=== PATIENT | female | born 1975 | race Caucasian/White ===

== ENCOUNTER 2024-04-24 14:07 | Outpatient (REF) | payer MEDICAID, SELFPAY ==
--- OUTSIDE RECORDS SUMMARY | 2024-04-24 15:15 | XMS_ITS | Encounter Summary ---
Author Organization [employer] Address [address] [facility] 7t [place] [address] Care Team Providers Care Legal Instructor Name Role Phone Estela Powers MD Primary Care Provider [phone] Jos Ying RN Unavailable [phone] Reason for Visit * Reason Onset Date Comments Care Management 04/04/2024 C3CM- f/u call # 2 lvm Encounter Details Date Type Department Care Team ([facility] st Contact Info) Description 04/04/2024 Telephone [facility] MEDICINE [address] [place] [address] Jos Ying, RN [address] [place] [address] Care Management (C3CM- f/u call #2 lvm) Social History Tobacco Use Types Packs/Day Years Used Date Smoking Tobacco: Every Day Cigarettes Smokeless Tobacco: Never Housing Stability Answer Date Recorded What is your housing situation today? I have fitz génesis 03/18/[address] you li ve. Do you have problems with any of the following? None of the above 03/18/2024 Food Insecurity Answer Date Recorded Within the past 12 months, y ou worried that your food would run out before you got money to buy more: Sometimes True 2024 Within the past 12 months,th e food you bought just didn't last and you didn't have enough money to get more: Sometimes True 03/18/2024 Transportation Answer Date Recorded In the past 12 months, has l ack of transportation kept you from medical appts, meetings, work or from getting things needed for daily living? Yes, it has kept me from medical appointments or getting medications. 03/18/2024 Utilities Answer Date Recorded In the past 12 months, has t he electric, gas, oil or water company threatened to shut off services in your home? No 03/18/2024 Internet Access Answer Date Recorded Internet Access Q1 Yes 03/18/2024 Internet Access Q2 Not on file 03/18/2024 Comments Unknown Sex and Gender Information Value Date Recorded Sex Assigned at Female 01/02/2022 10:21 AM EDT Legal Sex Female 10:21 AM EDT Gender Identity Female 01/02/2022 10:21 AM EDT Sexual Orientation Straight 01/02/2022 10 :21 AM EDT documented as of this encounter Miscellaneous Notes * Telephone Encounter - Jos Ying RN - 04/04/2024 9:35 AM EST CM Jos Ying RN placed outbound call to patient for follow up call. No answer at this time. LVM introducing herself from [facility] CM Department. Requested call back. CM reinforced direct contact information for any additional questions or concerns. Education provided on Walk-In Urgent Care located in [facility]. Patient provided with after-hours line for [facility], , which offer night time triage service and option to transfer to allocation analyst provider if needed. CM will attempt another follow up call within 10 days. documented in this encounter Plan of Treatment Not on file documented as of this encounter Visit Diagnoses Not on filedocumented in this encounter Care Teams Legal Instructor Relationship Specialty Start Date End Date Estela Powers MD [address] [place] [address] PCP - General Internal Medicine 04/03/13 Jos Ying RN [address] [place] [address] Experimental Box TesterManagement Associate 03/19/24 documented as of this encounter
--- OUTSIDE RECORDS SUMMARY | 2024-04-24 15:15 | XMS_ITS | Encounter Summary ---
Author Organization [employer] Address [address] [place] [address] 7t [place] [address] Care Team Providers Care Doctor Of Osteopathy Name Role Phone Estela Powers MD Primary Care Provider [phone] Jos Ying RN Unavailable [phone] Reason for Referral * Consultation (Routine) - Authorized Specialty Diagnoses / Procedures Referred By Shima chacon Referred To Contact Pharmacy Diagnoses Smoking Estela Powers MD [address] [place] [address] Phone: tel: fax: Referral ID Status Reason Start Date Expiration Date Visits Requested Visits Authorized [id number] Authorized Consult and Treat 04/24/2024 04/24/2025 6 6 * Imaging (Routine) - Closed Specialty Diagnoses / Procedures Referred By Shima chacon Referred To Contact Radiology Diagnoses Annual physical exam Procedures BI Mammogram Screening Tomosynthesis Bilateral Estela Powers MD [address] [place] [address] Phone: tel: fax: [address] Phone: tel: fax: Referral ID Status Reason Start Date Expiration Date Visits Re quested Visits Authorized [id number] Closed 04/24/2024 04/24/2025 1 1 * Consultation (Routine) - Pending Review Specialty Diagnoses / Procedures Referred By Shima chacon Referred To Contact Urology Diagnoses Stress incontinence Estela Powers MD [address] [place] [address] Phone: tel: fax: Referral ID Status Reason Start Date Expiration Date Visits Requested Visits Authorized [id number] Pending Review Specialty Services Required 04/24/2024 04/24/2025 1 1 Reason for Visit * Reason Comments Annual Exam Encounter Details Date Type Department Care Team ([facility] Contact Info) Description 04/24/2024 1:15 PM EST Office Visit [facility] MED & PEDS [address] [place] [address] Estela Powers MD [address] [place] [phone] Annual physical exam (Primary Dx); Dietary counseling; Exercise counseling; Class 3 severe obesity due to excess calories without serious comorbidity with body mass index (BMI) of 40.0 to 44.9 in adult (CMS/HCC); Elevated BP without diagnosis of hypertension; Stress incontinence; Muscle spasms of neck; Screening for colon cancer; Smoking; Encounter for immunization Social History Tobacco Use Types Packs/Day Years Used Date Smoking Tobacco: Every Day Cigarettes Smokeless Tobacco: Never Depression Answer Date Recorded Patient Health Questionnaire-9 Score 5 04/24/2024 Patient Health Questionnaire-9 Score 5 04/24/2024 Last PHQ-9: Questionnaire Data Not on file 0 04/24/2024 Housing Stability Answer Date Recorded What is your housing situation today? I have fitz capps 03/18/[address] you li [...] off services in your home? No 03/18/2024 Depression Answer Date Recorded Patient Health Questionnaire-2 Score 1 04/24/2024 Internet Access Answer Date Recorded Internet Access Q1 Yes 03/18/2024 Internet Access Q2 Not on file 03/18/2024 Comments Unknown Sex and Gender Information Value Date Recorded Sex Assigned at Female 01/02/2022 10:21 AM EDT Legal Sex Female 10:21 AM EDT Gender Identity Female 01/02/2022 10:21 AM EDT Sexual Orientation Straight 01/02/2022 10 :21 AM EDT documented as of this encounter Last Filed Vital Signs Vital Sign Reading Time Taken Comments Blood Pressure 140/82 04/24/2024 1:09 PM EST Pulse 84 04/24/2024 1:09 PM EST Temperature 36.8 ??C (98.2 ??F) 04/24/2024 1:09 PM ES T Respiratory Rate 20 04/24/2024 1:09 PM EST Oxygen Saturation 98% 04/24/2024 1:09 PM EST Inhaled Oxygen Concentration - - Weight 93.1 kg (205 lb 3.2 oz) 04/24/2024 1:09 P M EST Height 149.9 cm (4' 11 ) 04/24/2024 1:09 PM EST Body Mass Index 41.45 04/24/2024 1:09 PM EST documented in this encounter Plan of Treatment Scheduled Orders Name Type Priority Associated Diagnoses Orde r Schedule CBC auto differential Lab Routine Annual physical exam Expected: 04/24/2024 (Approximate), Expires: 04/24/2025 Comprehensive Metabolic Panel Lab Routine Annual physical exam Expected: 04/24/2024 (Approximate), Expires: 04/24/2025 Lipid Panel, Standard Lab Routine Annual physical exam Expected: 04/24/2024 (Approximate), Expires: 04/24/2025 HIV-1/2 Antigen and Antibodies, Fourth Generation, with Reflexes Lab Routine Annual physical exam Expected: 04/24/2024 (Approximate), Expires: 04/24/2025 Hepatitis C Antibody with Reflex to HCV, RNA, Quantitative, Real-Time PCR Lab Routine Annual physical exam Expected: 04/24/2024, Expires: 04/24/2025 TSH W/Reflex to FT4 Lab Routine Annual physical exam Stress incontinence Expected: 04/24/2024 (Approximate), Expires: 04/24/2025 Urinalysis, Complete, with Reflex to Culture Lab Routine Stress incontinence Expected: 04/24/2024 (Approximate), Expires: 04/24/2025 Vitamin D, 25-Hydroxy, Total, Immunoassay Lab Routine Annual physical exam Class 3 severe obesity due to excess calories without serious comorbidity with body mass index (BMI) of 40.0 to 44.9 in adult ([facility]) Expected: 04/24/2024 (Approximate), Expires: 04/24/2025 Vitamin B12/Folate, Serum Panel Lab Routine Annual physical exam Class 3 severe obesity due to excess calories without serious comorbidity with body mass index (BMI) of 40.0 to 44.9 in adult ([facility]) Expected: 04/24/2024, Expires: 04/24/2025 BI Mammogram Screening Tomosynthesis Bilateral Imaging Routine Annual physical exam Expected: 04/24/2024, Expires: 06/22/2025 Cologuard?? colon cancer screening Lab Routine Screening for colon cancer Expected: 04/24/2024 (Approximate), Expires: 04/24/2025 Scheduled Referrals Name Type Priority Associated Diagnoses Orde r Schedule Referral to Urology Outpatient Referral Routine Stress incontinence Expected: 04/24/2024 (Approximate), Expires: 04/24/2025 Referral to Pharmacy CDTM Outpatient Referral Routine Smoking Ordered: 04/24/2024 documented as of this encounter Visit Diagnoses Diagnosis Annual physical exam- Primary Routine general medical examination at a health care facility Dietary counseling Dietary surveillance and counseling Exercise counseling Class 3 severe obesity due to excess calories without serious comorbidity with body mass index (BMI) of 40.0 to 44.9 in adult ([facility]) Elevated BP without diagnosis of hypertension Stress incontinence Female stress incontinence Muscle spasms of neck Screening for colon cancer Special screening for malignant neoplasms, colon Smoking Tobacco use disorder Encounter for immunization documented in this encounter Additional Health Concerns Assessment Noted Time PHQ-9 Depression Total Score: 5 04/24/19 25 2:06 PM EST documented as of this encounter Care Teams Doctor Of Osteopathy Relationship Specialty Start Date End Date Estela Powers MD [address] [place] [address] PCP - General Internal Medicine 04/03/13 Jos Ying RN [address] [place] [address] Briquetter OperatorCurve Saw Operator 03/19/24 documented as of this encounter
--- OUTSIDE RECORDS SUMMARY | 2024-04-24 15:15 | XMS_ITS | Encounter Summary ---
Author Organization [employer] Address [address] [facility] 7t [place] [address] Care Team Providers Care Log Cut Off Sawyer Name Role Phone Estela Powers MD Primary Care Provider [phone] Jos Ying RN Unavailable [phone] Reason for Visit * Reason Comments Care Coordination [facility] outreach Encounter Details Date Type Department Care Team (Latest Contact Info) Description 04/22/2024 Patient Outreach [facility] MEDICINE [address] [place] [address] Estela Powers MD [address] [place] [address] Care Coordination (C3 [place] Mullen telephone call outreach) Social History Tobacco Use Types Packs/Day Years [...] AM EDT documented as of this encounter Progress Notes * Lisa Mullen - 04/22/2024 2:46 PM EST CHW Lisa Mullen left a voicemail to let her know PT 1 will be picking her up on 04/24/24 @12:15pm [facility]. documented in this encounter Plan of Treatment Not on file documented as of this encounter Visit Diagnoses Not on filedocumented in this encounter Care Teams Log Cut Off Sawyer Relationship Specialty Start Date End Date Estela Powers MD [address] [place] [address] PCP - General Internal Medicine 04/03/13 Jos Ying RN [address] [place] [address] Supervisor Leaf Spring RepairStudio Sales Associate 03/19/24 documented as of this encounter
--- OUTSIDE RECORDS SUMMARY | 2024-04-24 15:15 | XMS_ITS | Clinical Summary ---
Author Organization [employer] Address [address] [place] [address] 7t [place] [address] Care Team Providers Care Inspector Machine Parts Name Role Phone Estela Powers MD Primary Care Provider [phone] Jos Ying RN Unavailable [phone] Allergies Active Allergy Reactions Criticality Noted Date Comments Codeine Vomiting High 12/18/2011 Diphenhydramine Rash Low Other reaction(s): Doxycycline Doxycycline 10/28/2019 Erythromycin Other reaction(s): rash Oxcarbazepine 02/15/2023 Penicillins Other reaction(s): rash, rash Sulfamethoxazole 08/18/2019 Sulfamethoxazole-Trimethoprim 2022 Trimethoprim 08/18/2019 Medications cyclobenzaprine (Flexeril) 10 MG tabletIndicatio ns:Muscle spasms of neck Take 1 tablet (10 mg) by mouth 3 times daily for 10 days. 30 tablet 04/24/2024 5 Active ciprofloxacin (Cipro) 500 MG tablet Take 1 tablet (500 mg) by mouth 2 times daily for 7 days. 14 tablet 03/18/2024 5 Active Problems No known active problems Encounters Date Type Department Care Team Description 04/24/2024 1:15 PM EST Office Visit [facility] MED & PEDS [address] [place] [address] Estela Powers MD Annual physical exam (Primary Dx); Dietary counseling; Exercise counseling; Class 3 severe obesity due to excess calories without serious comorbidity with body mass index (BMI) of 40.0 to 44.9 in adult ([facility]); Elevated BP without diagnosis of hypertension; Stress incontinence; Muscle spasms of neck; Screening for colon cancer; Smoking; Encounter for immunization 04/24/2024 Travel 04/24/2024 Patient Outreach [address] [address] Estela Powers MD [id number] 04/22/2024 Patient Outreach [address] [address] Estela Powers MD Care Coordination ([facility] telephone call outreach) 04/14/[address] [address] Jos Ying RN Care Management ([facility]- f/u call) 04/10/2024 Patient Outreach [address] [address] Estela Powers MD Pre-visit Planning (Pre visit planning LVM ) 04/04/[address] [address] Jos Ying RN Care Management ([facility]- f/u call #2 lvm) 04/01/2024 Patient Outreach [address] [address] Estela Powers MD Care Coordination ([address] Mullen telephone call outreach) 04/01/[address] [address] Jos Ying, MAURILIO Care Management ([facility]- 1st f/u call lvm) 03/19/[address] [address] Jos Ying, RN Care Management (C3- initial assessment/ enrollment) 03/18/2024 4:00 PM EST Office Visit [facility] [address] [place] [address] Shonda Vinson MD Acute non-recurrent maxillary sinusitis (Primary Dx) 03/18/2024 Travel 03/18/2024 Patient Outreach [address] [address] Estela Powers MD 03/18/2024 Patient Outreach [address] [address] Estela Powers MD Care Coordination (C3 -[facility] Lisa Mullen telephone call outreach) 03/18/2024 Patient Outreach [address] [address] Estela Powers MD Care Coordination (C3 -[facility] Lisa Mullen telephone call outreach) 03/18/[address] [address] Jos Ying RN Care Management (C3CM- chart review) from Last 3 Months Immunizations Name Administration Dates Next Due Tdap 04/24/2024 Social History Tobacco Use Types Packs/Day Years Used Date Smoking Tobacco: Every Day Cigarettes Smokeless Tobacco: Never Tobacco Cessation:Ready to Q uit: Not Asked; Counseling Given: Not Answered Depression Answer Date Recorded Patient Health Questionnaire-9 [...] Orientation Straight 01/02/2022 10 :21 AM EDT Last Filed Vital Signs Vital Sign Reading [...] Mass Index 41.45 04/24/2024 1:09 PM EST Plan of Treatment Health Maintenance Due Date Last Done Comments CT Colonography 1977 Colonoscopy 1977 Colorectal Cancer Screening 1977 FIT DNA/Cologuard 1977 FIT 1977 FOBT 1977 HIV Screening 1977 Lipid Panel 1977 Sigmoidoscopy 1977 Family Planning (PISQ) 1992 Hepatitis C Screening 05/11/1995 Hepatitis B Vaccines (1 of 3 - 19+ 3-dose series) 1996 Pneumococcal Vaccine: Pediatrics (0 to 5 Years) and At-Risk Patients (6 to 49) Years) (1 of 2 - PCV) 1996 Pap Smear 1998 Cervical Cancer Screening 05/11/2007 HPV/Cotest 05/11/2007 Mammogram 2017 COVID-19 Vaccine (2023-2 5 season) 2023 Influenza Vaccine (#1) 2023 Alcohol/Substance Use Screening 04/24/2025 04/24/2024 Depression Screening 04/24/2025 04/24/2024, 04/24/2024 SDOH Screening 04/24/2025 04/24/2024 Tobacco Screening 04/24/2025 04/24/2024 Zoster Vaccines (1 of 2) 05/11/2027 DTaP/Tdap/Td Vaccines (2 - T d or Tdap) 04/24/2034 04/24/2024 RSV Patients and Patients Aged 60 years or older (1 - 1-dose 75+ series) 2052 HIB Vaccines Aged Out No longer eligi ble based on patient's age to complete this topic HPV Vaccines Aged Out No longer eligi ble based on patient's age to complete this topic Hepatitis A Vaccines Aged Out No long er eligible based on patient's age to complete this topic IPV Vaccines Aged Out No longer eligi ble based on patient's age to complete this topic Meningococcal Vaccine Aged Out No ray gladys eligible based on patient's age to complete this topic RSV under 20 months Aged Out No longe r eligible based on patient's age to complete this topic Rotavirus Vaccines Aged Out No longer eligible based on patient's age to complete this topic Procedures Procedure Name Priority Date/Time Associated Diagnosis Comments POCT RAPID STREP A Routine 03/18/2024 4: 05 PM EST Acute non-recurrent maxillary sinusitis from Last 3 Months Results * POCT rapid strep A manually resulted (03/18/2024 4:05 PM EST) Rapid Strep A Screen Negative Negative, None Detected Swab 03/18/2024 4:05 PM EST Shonda Vinson MD POINT OF CARE TEST ENTER/EDIT OR DERABLES Final Result from Last 3 Months Insurance * Guarantor: Aura Shepard Account Type Relation to Patient Date of Phone Billing Address Personal/Family Self [address] Care Teams Inspector Machine Parts Relationship Specialty Start Date End Date Estela Powers MD [address] [place] [address] PCP - General Internal Medicine 04/03/13 Jos Ying RN [address] [place] [address] Nursing Service DirectorPrintmaker 03/19/24
--- OUTSIDE RECORDS SUMMARY | 2024-04-24 15:15 | XMS_ITS | Encounter Summary ---
Author Organization [email or web address] Address [address] [facility] 7t [place] [address] Care Team Providers Care Training And Development Rep Name Role Phone Estela Powers MD Primary Care Provider [phone] Jos Ying RN Unavailable [phone] Reason for Visit * Reason Onset Date Comments Care Management 04/14/2024 C3CM- f/u call Encounter Details Date Type Department Care Team ([facility] st Contact Info) Description 04/14/2024 Telephone [facility] MEDICINE [address] [place] [address] Jos Ying, RN [address] [place], [place] [id number] Care Management (C3CM- f/u call) Social History Tobacco Use Types Packs/Day Years [...] t he electric, gas, oil or water [employer] threatened to shut off services in your [...] Telephone Encounter - Jos Ying RN - 04/14/2024 10:13 AM EST CLAUDIA Ying RN placed outbound call to patient. Patient's name, and address confirmed. Patient states is doing well with no recent illnesses. Patient seen at [facility] on 03/30/24 for eval of lower abdominal pain. Per patient, did not have abdominal pain. She states that what she experienced was vaginal pressure. Per patient, felt like her cervix was going to fall out. Patient states sheis doing better since the ED visit. She denies any pain or discomfort. She denies any vaginal discharge or UTI symptoms. Per patient, doing well emotionally today. She states she is scheduled to see psych this month. Per patient, will be calling the office to confirm the date. Patient states she is taking all of her medications as directed and denies any concerns. Patient is aware of her scheduled PE with PCP on 04/24/24. She states she will be scheduling PT1 to the visit and she denies any barriers to attending. No further questions or concerns. CM reinforced direct contact information for any additional questions or concerns. Education provided on Walk-In Urgent Care located in [facility]. Patient provided with after-hours line for [facility], , which offer night time triage service and option to transfer to direct support professional caregiver provider if needed. Patient verbalizes understanding, and able to r epeat back to global technical writer. A follow up call will be placed within 10 days, patient agrees with plan. documented in this encounter Plan of Treatment Not on file documented as of this encounter Visit Diagnoses Not on filedocumented in this encounter Care Teams Training And Development Rep Relationship Specialty Start Date End Date Estela Powers MD [address] [place] [address] PCP - General Internal Medicine 04/03/13 Jos Ying RN [address] [place] [id number] Tape Controlled Machine StitcherPoultry Hatchery Man 03/19/24 documented as of this encounter
--- OUTSIDE RECORDS SUMMARY | 2024-04-24 15:15 | XMS_ITS | Encounter Summary ---
Author Organization [employer] Address [address] [facility] 7t [place] [address] Care Team Providers Care Product Marketing Specialist Name Role Phone Estela Powers MD Primary Care Provider [phone] Jos Ying RN Unavailable [phone] Reason for Visit * Reason Comments Care Coordination [id number] Lisa Mullen telephone call outreach Encounter Details Date Type Department Care Team (Latest Contact Info) Description 04/24/2024 Patient Outreach [facility] MEDICINE [address] [place] [address] Estela Powers MD [address] [place] [address] Care Coordination ([id number] Mullen telephone call outreach) Social History Tobacco [...] encounter Progress Notes * Lisa Mullen - 04/24/2024 9:37 AM EST CHW Lisa Mullen spoke to patient to let her know her PT 1 will be picking her up on 04/24/24 for herappointment. documented in this encounter Plan of Treatment Not on file documented as of this encounter Visit Diagnoses Not on filedocumented in this encounter Additional Health Concerns Assessment Noted Time PHQ-9 Depression Total Score: 5 04/24/19 2:06 PM EST documented as of this encounter Care Teams Product Marketing Specialist Relationship Specialty Start Date End Date Estela Powers MD [address] [place] [address] PCP - General Internal Medicine 04/03/13 Jos Ying RN [address] [place] [address] Chief Telephone OperatorCrew Boss 03/19/24 documented as of this encounter
--- OUTSIDE RECORDS SUMMARY | 2024-04-24 15:15 | XMS_ITS | Encounter Summary ---
Author Organization [employer] Address [address] [facility] [address]t [place] [address] Care Team Providers Care Cost Estimating Clerk Name Role Phone Estela Powers MD Primary Care Provider [phone] Jos Ying RN Unavailable [phone] Reason for Visit * Reason Comments Pre-visit Planning Pre visit planning L VM Encounter Details Date Type Department Care Team ([facility] st Contact Info) Description 04/10/2024 Patient Outreach [facility] [address] [place] [address] Estela Powers MD [address] [place] [address] Pre-visit Planning (Pre visit planning LVM ) Social History Tobacco Use Types Packs/Day Years [...] as of this encounter Progress Notes * Arthur Gibbons - 04/10/2024 2:22 PM EST CC Arthur Cordero placed outbound call to patient to complete pre-visit planning. No answer at this time.Patient name and were not confirmed. CC left voicemail requesting return call. Direct contact information provided. documented in this encounter Plan of Treatment Not on file documented as of this encounter Visit Diagnoses Not on filedocumented in this encounter Care Teams Cost Estimating Clerk Relationship Specialty Start Date End Date Estela Powers MD [address] [place] [address] PCP - General Internal Medicine 04/03/13 Jos Ying RN [address] [place] [address] Director Of CounselingJury Consultant 03/19/24 documented as of this encounter
--- OUTSIDE RECORDS SUMMARY | 2024-04-24 15:15 | XMS_ITS | Encounter Summary ---
Author Organization [employer] Address [address] [facility] [address] [place] [address] Care Team Providers Care Tire Installer Name Role Phone Estela Powers MD Primary Care Provider [phone] Jos Ying RN Unavailable Reason for Visit * Reason Onset Date Comments Care Management 04/01/2024 C3CM- 1st f/u ca ll lvm Encounter Details Date Type Department Care Team ([facility] st Contact Info) Description 04/01/2024 Telephone [facility] [address] [place] [address] Jos Ying, RN [address] [place] [address] Care Management (C3CM- 1st f/u call lvm) Social History Tobacco Use Types Packs/Day Years Used Date Smoking Tobacco: Every Day Cigarettes Smokeless Tobacco: Never Housing Stability Answer Date Recorded What is your housing situation today? I have fitz sing 03/18/[address] you li [...] Telephone Encounter - Jos Ying RN - 04/01/2024 11:23 AM EST CM noted patient was seen at [facility] [place]24. See note scanned into chart in [id number]. Call placedto [facility] to f/u on referral from 03/2023. Informed the referral was received and that multiplecalls were placed to the patient to schedule an appt but they have not been able to speak with the patient. They advise that the patient contact their office directly at [phone] to schedule an appt. New referral not needed at this time. CM Jos Ying RN placed outbound call with [facility] Mullen to patient for follow up call. No answer at this time. LVM introducing herself from [facility] CM Department. Requested call back. CM reinforced direct contact information for any additional questions or concerns. Education provided on Walk-In Urgent Care located in [facility] of [facility]. Patient provided with after-hours line for [facility], , which offer night time triage service and option to transfer to subscription agent provider if needed. CM will attempt another follow up call within 10 days. documented in this encounter Plan of Treatment Not on file documented as of this encounter Visit Diagnoses Not on filedocumented in this encounter Care Teams Tire Installer Relationship Specialty Start Date End Date Estela Powers MD [address] [place] [id number] PCP - General Internal Medicine 04/03/13 Jos Ying RN [address] [place] [id number] Captain Airline PilotFoot Specialist 03/19/24 documented as of this encounter
--- OUTSIDE RECORDS SUMMARY | 2024-04-24 15:15 | XMS_ITS | Encounter Summary ---
Author Organization [employer] Address [address] [facility] [address] [place] [address] Care Team Providers Care Ship Wirer Name Role Phone Estela Powers MD Primary Care Provider [phone] Jos Ying RN Unavailable [phone] Reason for Visit * Reason Comments Care Coordination [facility] call outreach Encounter Details Date Type Department Care Team (Latest Contact Info) Description 04/01/2024 Patient Outreach [facility] [address] [place] [address] Estela Powers MD [address] [place] [address] Care Coordination (C3 [place] M[facility] telephone call [...] encounter Progress Notes * Lisa Mullen - 04/01/2024 11:27 AM EST CHW Lisa Mullen placed outbound call to patient for follow up call on SDOH needs. No answer at thistime. LVM introducing herself from [facility] CM Department. Requested call back. CHW reinforced direct contact information or CM for any additional questionsor concerns and extended clinic hours on Mondays and Wednesdays, and Walk-In Urgent Care Located inLobby of [facility]. Patient provided with after-hours line for [facility], , which offer nighttime triage service and option to transfer to senior mobile solutions architect provider if needed. CHW will attempt another follow up call within 10 days. documented in this encounter Plan of Treatment Not on file documented as of this encounter Visit Diagnoses Not on filedocumented in this encounter Care Teams Ship Wirer Relationship Specialty Start Date End Date Estela Powers MD [address] [place] [address] PCP - General Internal Medicine 04/03/13 Jos Ying RN [address] [place] [address] Parts FacilitatorRecreation Establishment Manager 03/19/24 documented as of this encounter
--- OUTSIDE RECORDS SUMMARY | 2024-04-24 15:15 | XMS_ITS | Encounter Summary ---
Author Organization [employer] Address [address] [facility] [address] [place] [address] Care Team Providers Care Health Club Attendant Name Role Phone Estela Powers MD Primary Care Provider [phone] Jos Ying RN Unavailable [phone] Encounter Details Date Type Department Care Team (Latest Contact Info) Description 04/24/2024 Travel Social History Tobacco Use Types Packs/Day Years [...] AM EDT documented as of this encounter Plan of Treatment Not on file documented as of this encounter Visit Diagnoses Not on filedocumented in this encounter Additional Health Concerns Assessment Noted Time PHQ-9 Depression Total Score: 5 04/24/19 25 2:06 PM EST documented as of this encounter Care Teams Health Club Attendant Relationship Specialty Start Date End Date Estela Powers MD [address] [place] [address] PCP - General Internal Medicine 04/03/13 Jos Ying RN [address] [place] [address] Auto Claim RepresentativePark Guard 03/19/24 documented as of this encounter
[2024-04-24 17:58] LABS: MANUAL DIFF FLAG NO
[2024-04-24 18:16] LABS: Basophils Absolute Auto 0.1 X10*3/uL (0.0-0.2); Basophils Percent Auto 0.6 % (0-2); Eosinophils Absolute Auto 0.1 X10*3/uL (0.0-0.4); Eosinophils Percent Auto 0.8 % (0-4); Hematocrit 44.8 % (37.0-47.0); Hemoglobin 15.6 g/dl (12.0-16.0); Imm Gran Abs Auto 0.03 X10*3/uL (0.00-0.03); Imm Gran Pct Auto 0.4 % (0.0-0.4); Lymphocytes Absolute Auto 3.3 X10*3/uL (1.2-4.9); Lymphocytes Percent Auto 39.1 % (20-40); Mean Corpuscular HGB Conc 34.8 g/dl (31.0-35.0); Mean Corpuscular Hemoglobin 32.1 pg (27.0-33.0); Mean Corpuscular Volume 92.2 fL (80.0-98.0); Mean Platelet Volume 9.7 fL (9.4-12.3); Monocytes Absolute Auto 0.5 X10*3/uL (0.1-1.2); Monocytes Percent Auto 5.3 % (2-11); Neutrophils Absolute Auto 4.6 x10*3/uL (2.0-8.3); Neutrophils Percent Auto 53.8 % (45-73); Platelet Count 366 X10*3/uL (160-400); Red Blood Count 4.86 X10*6/uL (4.20-5.50); Red Cell Distribution Width 12.3 % (11.0-16.0); White Blood Count 8.5 X10*3/uL (4.8-10.8)
[2024-04-24 18:38] LABS: Alanine Aminotransferase 29 U/L (0-31); Albumin Level 4.3 g/dL (3.5-5.0); Alkaline Phosphatase 102 U/L (39-117); Anion Gap 14 (12-20); Aspartate Amino Transferase 27 U/L (5-31); Bilirubin Total 0.3 mg/dL (0.0-1.0); Blood Urea Nitrogen 11 mg/dL (9-16); Calcium 9.9 mg/dL (8.4-10.2); Carbon Dioxide 20 mmol/L (22-29); Chloride 112 mmol/L (96-108); Cholesterol 235 mg/dL (<200); Estimated Glomerular Filt Rate > 60; Glucose Random 105 mg/dL (60-115); HDL Cholesterol 48 mg/dL (>40); LDL Cholesterol Calculated 150 mg/dL (<100); Potassium 4.1 mmol/L (3.3-5.1); Sodium 142 mmol/L (135-145); Total Protein 7.9 g/dL (6.5-8.0); Triglycerides 185 mg/dL (<150)
[2024-04-24 18:44] LABS: TSH reflex Free T4 0.95 uIU/mL (0.32-4.0)
[2024-04-24 19:00] LABS: Folate 13.6 ng/mL (> or = 4.0); Vitamin B12 446 pg/mL (200-900)
[2024-04-25 08:19] LABS: HIV AB/AG Nonreactive (Nonreactive); HIV Num 1 0.06 S/CO (0.00-0.99); ~HepC Num1 0.06 S/CO (0.00-0.79); ~Hepatitis C Antibody Nonreactive (Nonreactive)
== END 2024-04-24 14:08 | disposition home or self-care (01) ==
LOC: HO.CHCLDS 14:07
PROVIDERS: Visit Provider Internal Medicine
DX: Z00.00 Encounter for general adult medical examination without abnormal findings (principal); E66.813 Obesity, class 3; E66.01 Morbid (severe) obesity due to excess calories; Z68.41 Body mass index [BMI] 40.0-44.9, adult; N39.3 Stress incontinence (female) (male)
CPT/HCPCS: 36415; 80053; 80061; 82306; 82607; 82746; 84443; 85025; 86803; 87389